=== PATIENT | male | born 1930 | race Caucasian/White ===

== ENCOUNTER → 2016-08-14 | Emergency (ER) | payer MEDICARE ==
[~2016-08-14] VITALS: Ht 185.4 cm; Wt 86.4 kg
[~2016-08-14] MED LIST: ASPIRIN 81 MG CHEW (LOW-DOSE) PO ONE; DOCU-243 PO; FURO40TA4 PO; METF500T4 PO; MIRT45TA5 PO; NITROGLYCERIN SUBLINGUAL 0.4 MG (NITROQUICK) TABLET SL PRN; POTA20TA15 PO; PRD5T PO; SMV20T PO; SODIUM CHLORIDE FLUSH 10 ML SYR IV PRN; SODIUM CHLORIDE FLUSH 3 ML SYR IV PRN
--- OUTSIDE RECORDS SUMMARY | 2016-08-14 22:14 | XMS REPORT | Continuity of Care Document ---
Author Author [facility] Organization [facility] Address Unknown Phone Unavailable Allergies Active Description Code Type Severity Reaction Onset Reported/Identified Relationship to Patient Clinical Status Yes No Known Allergies NKA Miscellaneous Allergy Unknown N/A 04/11/2007 Medications Problems Procedures Results Encounters ACCT No. Visit Date/Time Discharge Status Pt. Type Provider Facility Loc./Unit Complaint [id number] 11/07/2012 12:30:00 2012 23:59:59 [facility] Outpatient Fredi ALVARES, [facility]G.WKUA [id number] 11/07/2012 00:00:00 2012 23:59:59 [facility] Outpatient Fredi ALVARES, [facility] BENYT.P
--- OUTSIDE RECORDS SUMMARY | 2016-08-14 22:15 | XMS REPORT | Continuity of Care Document ---
Author Author [facility] Organization [facility] Address Unknown Phone Unavailable Allergies Active Description Code Type Severity Reaction Onset Reported/Identified Relationship to Patient Clinical Status Yes No Known Allergies NKA Miscellaneous Allergy Unknown N/A 04/11/2007 Medications Problems Procedures Results Encounters ACCT No. Visit Date/Time Discharge Status Pt. Type Provider Facility Loc./Unit Complaint [id number] 11/07/2012 12:30:00 2012 23:59:59 [facility] Outpatient Fredi ALVARES, [facility]G.WKUA [id number] 11/07/2012 00:00:00 2012 23:59:59 [facility] Outpatient Fredi ALVARES, [facility] BENYT.P
[2016-08-14 22:56] VITALS: BP 155/67
[2016-08-14 23:09] LABS: BASOPHILS % (AUTO) 1 % (0-2); EOSINOPHILS # (AUTO) 0.1 10^3uL; EOSINOPHILS % (AUTO) 2 % (0-4); LYMPHOCYTES # (AUTO) 1.3 X10^3; MEAN CORPUSCULAR HGB CONC 32.4 g/dL (31.0-37.0); MEAN PLATELET VOLUME 9.2 FL (6.0-9.5); MONOCYTES # (AUTO) 0.9 X10^3; MONOCYTES % (AUTO) 12 % (3-11); NEUTROPHILS # (AUTO) 4.7 X10^3; NEUTROPHILS % (AUTO) 66 % (51-67); PLATELET COUNT 195 10^3uL (150-450); WHITE BLOOD COUNT 7.03 10^3uL (4.0-11.0)
[2016-08-14 23:10] LABS: MEAN CORPUSCULAR HEMOGLOBIN 32.1 PG (26.0-34.0); MEAN CORPUSCULAR VOLUME 99 FL (80-100)
[2016-08-14 23:16] LABS: ANION GAP 13.7 MEQ/L (3-15); CALCULATED IONIZED CALCIUM 3.9 mg/dL (3.8-4.6); TOTAL PROTEIN 7.7 g/dL (6.4-8.5)
--- NOTE | 2016-08-15 01:32 | NUR ---
Called report to Dina at the [facility]. Daughter will take patient back to [facility].
--- NOTE | 2016-08-15 09:44 | Diagnostic Imaging Report ---
INDICATION: Shortness of breath. Study compared 08/09/2014 FINDINGS: COPD chronic. Heart size stable. Pacemaker device unremarkable. No failure, effusion, or pneumothorax. No acute finding. IMPRESSION: No acute appearing abnormality. Dictated by: Dictated on workstation # [id number]
--- NOTE | 2016-08-15 10:33 | Diagnostic Imaging Report ---
PROCEDURE: CT head without contrast. TECHNIQUE: Multiple contiguous axial images were obtained through the brain without the use of intravenous contrast. INDICATION: Fall, history of stroke. COMPARISON: None available. Findings: No hyperdense hemorrhage or space-occupying mass. No hydrocephalus or midline shift. Symmetric prominence of the ventricles and cortical sulci is compatible with age-appropriate atrophy. No isolated lobar atrophy. No territorial loss of murillo-white matter differentiation to indicate acute/subacute infarct. Small focus of encephalomalacia in the posterior left frontal lobe is compatible with old infarct. Remote lacunar infarct in the posterior right cerebellum. Moderate periventricular white matter hypoattenuation is likely due to chronic microvascular ischemic disease. The mastoid air cells are clear. Patchy mucosal thickening in the right ethmoid air cells. Other paranasal sinuses are clear. No focal osseous abnormality of the calvarium. Impression: 1. No acute intracranial process. 2. 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 3. Findings are in agreement with the preliminary report. Dictated by: Dictated on workstation # [id number]
== END | disposition home or self-care (01) ==
LOC: ED 22:12
DX: R07.9 Chest pain, unspecified (principal); G89.11 Acute pain due to trauma; R51 Headache; W19.XXXA Unspecified fall, initial encounter; Y92.129 Unspecified place in nursing home as the place of occurrence of the external cause
CPT/HCPCS: 36415; 70450; 71010; 80053; 83880; 84484; 85025; 93005; 99283; A9270; 93010; 99285